=== PATIENT | female | born 1980 | race American Indian/Alaskan Native ===

== ENCOUNTER 2018-04-28 07:59 | Emergency (ER) | payer MEDICAID ==
[2018-04-28 08:29] VITALS: BMI 43.2
--- NOTE | 2018-04-28 08:33 | ED PDOC ---
Arrival/HPI - General Time Seen by Provider: 04/28/18 08:25 Historian: Patient - History of Present Illness Narrative History of Present Illness (Text): you were treated in the ED today for hx of having low blood levels and have had iron transfusions in the past and being sent for blood transfusion as last level 6.6 and otherwise without any nausea/vomiting/headache/dizziness/ difficulty breathing/chest pain/abdomen pain/numbness/tingling/loss of limb function/pain with urination/blood per rectum or vaginal bleeding. Symptom Onset: Gradual Quality: Other (no pain) Activities at Onset: Rest Context: Sitting Past Medical History - Provider Review Nursing Documentation Reviewed: Yes - Travel History Have you recently traveled outside [place] w/in the past 3 mons?: No Family/Social History - Physician Review Nursing Documentation Reviewed: Yes Family/Social History: No Known Family HX Allergies/Home Meds Allergies/Adverse Reactions: Allergies loratadine [From Claritin] Allergy (Verified 04/28/18 08:32) tingling of lips cilantro Allergy (Uncoded 04/28/18 08:32) SWELLING coconut Allergy (Uncoded 04/28/18 08:32) SWELLING raw onion Allergy (Uncoded 04/28/18 08:32) SWELLING Home Medications: Home Meds Medication Instructions Recorded Confirmed No Known Home Med 04/28/18 04/28/18 Review of Systems - Review of Systems Constitutional: Normal Eyes: Normal ENT: Normal Respiratory: Normal Cardiovascular: Normal Gastrointestinal: Normal Genitourinary Female: Normal Musculoskeletal: Normal Skin: Normal Neurological: Normal Endocrine: Normal Hemo/Lymphatic: Normal Psychiatric: Normal Physical Exam Vital Signs Reviewed: Yes Vital Signs Temp Pulse Resp BP Pulse Ox 04/28/18 14:53 98.0 F 78 17 135/95 H 99 04/28/18 14:47 98.0 F 66 18 135/95 H 99 04/28/18 12:12 98.4 F 61 20 135/79 04/28/18 11:27 97.9 F 57 L 19 137/76 100 04/28/18 11:09 98.2 F 64 18 131/83 04/28/18 08:28 98.5 F 79 17 133/77 99 Temperature: Afebrile Blood Pressure: Hypertensive Pulse: Regular Respiratory Rate: Normal Appearance: Positive for: Well-Appearing, Non-Toxic, Comfortable Pain Distress: None Mental Status: Positive for: Alert and Oriented X 3 - Systems Exam Head: Present: Atraumatic, Normocephalic Pupils: Present: PERRL Extroacular Muscles: Present: EOMI Conjunctiva: Present: Other (pale) Ears: Present: Normal Mouth: Present: Moist Mucous Membranes Pharnyx: Present: Normal Nose (External): Present: Atraumatic Nose (Internal): Present: Normal Inspection Neck: Present: Normal Range of Motion Respiratory/Chest: Present: Clear to Auscultation, Good Air Exchange Cardiovascular: Present: Regular Rate and Rhythm Abdomen: No: Tenderness, Distention, Normal Bowel Sounds, Peritoneal Signs, Rebound, Guarding, McBurney's Point Tender, Rovsing's Sign Present, Hernias, Feeding Tubes, Ostomy Tubes, Mass/Organomegaly, Scars, Other Back: Present: Normal Inspection Upper Extremity: Present: Normal Inspection Lower Extremity: Present: Normal Inspection, CALF TENDERNESS, NORMAL PULSES Neurological: Present: GCS=15, CN II-XII Intact, Speech Normal, Motor Func Grossly Intact Skin: Present: Warm, Normal Color Psychiatric: Present: Alert, Oriented x 3, Normal Insight, Normal Concentration Medical Decision Making ED Course and Treatment: you were treated in the ED today for hx of having low blood levels and have had iron transfusions in the past and being sent for blood transfusion as last level 6.6 and otherwise without any nausea/vomiting/headache/dizziness/ difficulty breathing/chest pain/abdomen pain/numbness/tingling/loss of limb function/pain with urination/blood per rectum or vaginal bleeding. You were otherwise breathing easily, smiling and talking easily, good strength/sensation , alert/oriented, walking, clear lungs, no abdomen tenderness, skin pale eyelids , no fever temp 98.5, stable heart rate 79, stable breathing rate 17, excellent oxygen level 99% room air, elevated blood pressure 133/77 which we recommend repeat in 2-3 days primary care office to determine further treatment, you have blood tests no infection count 4, low blood level hemoglobin 6.5/platelets stable 433, stable chemistry, heart blood test negative less than 0.01, urine test no acute sign of infection, urine test negative, ECG normal sinus rhythm, transfusion planned, observation done in the ED with improvement. d/w Dr. Fisher hospitalist who stated since patient doesn't want to stay in the hospital as she has makenzie show to attend at 645pm today and thus hospitalist stated to give 1 unit of blood and reassess with plan for discharge after 1u and if patient decides to stay in the hospital can re-call and admit. patient cautioned for complications/. signed out to Dr. Betancur to fu prbc transfusion and disposition. 04/28/18 10:57 Reassessment Condition: Re-examined, Improved - Lab Interpretations Lab Results: 04/28/18 08:38 04/28/18 08:38 Lab Results 04/28/18 09:30: Blood Type Confirm A POSITIVE 04/28/18 08:50: Blood Type A POSITIVE, Antibody Screen Negative, Crossmatch See Detail, BBK History Checked No verified bt 04/28/18 08:38: Sodium 141, Potassium 3.8, Chloride 107, Carbon Dioxide 22, Anion Gap 16, BUN 9, Creatinine 0.5 L, Est GFR ( Amer) > 60, Est GFR (Non -Af Amer) > 60, Random Glucose 94, Calcium 9.2, Magnesium 1.8, Total Bilirubin 0.2, AST 24, ALT 16, Alkaline Phosphatase 42, Lactate Dehydrogenase 424, Total Creatine Kinase 38, Troponin I < 0.01, Total Protein 7.5, Albumin 4.1, Globulin 3.4, Albumin/Globulin Ratio 1.2 04/28/18 08:38: Urine Color Yellow, Urine Appearance Clear, Urine pH 6.0, Ur Specific [place] 1.020, Urine Protein Trace H, Urine Glucose (UA) Negative, Urine Ketones Negative, Urine Blood Trace-intact H, Urine Nitrate Negative, Urine Bilirubin Negative, Urine Urobilinogen 0.2, Ur Leukocyte Esterase Negative , Urine RBC 1 - 3, Urine WBC 0 - 2, Ur Epithelial Cells 4 - 5, Urine Bacteria Mod 04/28/18 08:38: PT 12.0, INR 1.04, APTT 38.0 H 04/28/18 08:38: WBC 4.0 L, RBC 4.36, Hgb 6.5 L*, Hct 25.3 L, MCV 58.0 L, MCH 14.9 L, MCHC 25.7 L, RDW 21.1 H, Plt Count 433, Gran % 57.5, Lymph % (Auto) 31.9 , [place] % (Auto) 8.7 H, Eos % (Auto) 1.7, Baso % (Auto) 0.2, Gran # 2.30, Lymph # (Auto) 1.3, [place] # (Auto) 0.4, Eos # (Auto) 0.1, Baso # (Auto) 0.01, Neutrophils % (Manual) 70, Lymphocytes % (Manual) 26, Monocytes % (Manual) 3, Basophils % (Manual) 1, Platelet Evaluation Normal, Large Platelets Present, Giant Platelets Present, Hypochromasia 3+, Poikilocytosis (manual Slight, Anisocytosis (manual) 1+, Microcytosis (manual) 3+, Tear Drop Cells Slight, Ovalocytes Slight I have reviewed the lab results: Yes - EKG Interpretation Interpreted by ED Physician: Yes (NSR) Type: 12 lead EKG Disposition/Present on Arrival - Present on Arrival Any Indicators Present on Arrival: No - Disposition Have Diagnosis and Disposition been Completed?: Yes Diagnosis: Anemia Disposition: HOME/ ROUTINE Disposition Time: 07:34 Patient Plan: Discharge Condition: IMPROVED Additional Instructions: MIKA PERDUE, thank you for letting us take care of you today. Your provider was Fco eBtancur DO and you were treated for Anemia. The emergency medical care you received today was directed at your acute symptoms. If you were prescribed any medication, please fill it and take as directed. It may take several days for your symptoms to resolve. Return to the Emergency Department if your symptoms worsen, do not improve, or if you have any other problems. Please contact your doctor or call one of the physicians/clinics you have been referred to that are listed on the Patient Visit Information form that is included in your discharge packet. Bring any paperwork you were given at discharge with you along with any medications you are taking to your follow up visit. Our treatment cannot replace ongoing medical care by a primary care provider outside of the emergency department. Thank you for allowing the [facility] team to be part of your care today. If you had an X-Ray or CT scan: A Radiologist will review the ED reading if any change in treatment is needed we will contact you. If you had a blood, urine, or wound culture: It will take several days for the results, if any change in treatment is needed we will contact you. If you had an STI test: It will take 48 hours for the results. Please call after 1 week if you have not heard back. Referrals: Kellee Jurado MD [Primary Care Provider] - Follow up with primary Forms: WORK NOTE
[2018-04-28 09:08] LABS: BASO # 0.01 K/mm3 (0.0-2.0); BASO % 0.2 % (0.0-3.0); EOS # 0.1 (0.0-0.7); EOS % 1.7 % (1.5-5.0); GRAN % 57.5 % (50.0-68.0); LYMPH # 1.3 (1.2-3.4); LYMPH % 31.9 % (22.0-35.0); MEAN CORPUSCULAR HEMOGLOBIN 14.9 pg (25.0-35.0); MEAN CORPUSCULAR HGB CONC 25.7 g/dl (31.0-37.0); MONO # 0.4 (0.1-0.6); MONO % 8.7 % (1.0-6.0); PLATELET COUNT 433 10^3/uL (120.0-450.0); RBC 4.36 10^6/uL (3.5-6.1); RED CELL DISTRIBUTION WIDTH 21.1 % (11.5-14.5); URINE BILIRUBIN NEGATIVE (NEGATIVE); URINE BLOOD TRACE-INTACT (NEGATIVE); URINE GLUCOSE (UA) NEGATIVE (NEGATIVE); URINE LEUKOCYTE ESTERASE NEGATIVE Leu/uL (NEGATIVE); URINE PROTEIN TRACE mg/dL (<30 mg/dL); URINE UROBILINOGEN 0.2 E.U./dL (<1 E.U./dL)
[2018-04-28 09:12] LABS: HEMOGLOBIN 6.5 g/dL (12.0-16.0); URINE APPEARANCE CLEAR (CLEAR); URINE COLOR YELLOW (YELLOW)
[2018-04-28 09:18] LABS: ALB/GLOB RATIO 1.2 (1.1-1.8); ALBUMIN 4.1 g/dL (3.0-4.8); ALT/SGPT 16 U/L (7-56); AST/SGOT 24 U/L (14-36); BLOOD UREA NITROGEN 9 mg/dL (7-21); CALCIUM 9.2 mg/dL (8.4-10.5); GFR AFRICAN-AMERICAN > 60; GFR NON-AFRICAN AMERICAN > 60; URINE BACTERIA MOD (NEG); URINE WBC 0 - 2 /hpf (0-6)
[2018-04-28 09:19] LABS: INR 1.04 (0.93-1.08)
[2018-04-28 09:29] LABS: TROPONIN I < 0.01 ng/mL
[2018-04-28 09:34] LABS: ANISOCYTOSIS 1+; BASOPHIL 1 % (0.0-1.0); HYPOCHROMIA 3+; LYMPHOCYTE 26 % (22.0-35.0); MICROCYTOSIS 3+; MONOCYTE 3 % (1.0-6.0); NEUTROPHIL 70 % (50.0-70.0); POIKILOCYTOSIS SLIGHT
[2018-04-28 09:35] LABS: GIANT PLATELETS PRESENT; LARGE PLATELETS PRESENT; OVALOCYTES SLIGHT; PLATELET ESTIMATE NORMAL (NORMAL); TEAR DROP CELLS SLIGHT
--- NOTE | 2018-04-28 12:47 | ED PDOC ---
Physical Exam Vital Signs Reviewed: Yes Vital Signs Temp Pulse Resp BP Pulse Ox 04/28/18 12:12 98.4 F 61 20 135/79 04/28/18 11:27 97.9 F 57 L 19 137/76 100 04/28/18 11:09 98.2 F 64 18 131/83 04/28/18 08:28 98.5 F 79 17 133/77 99 Temperature: Afebrile Blood Pressure: Normal Pulse: Regular Respiratory Rate: Normal Appearance: Positive for: Well-Appearing, Non-Toxic, Comfortable Pain Distress: None Mental Status: Positive for: Alert and Oriented X 3 Medical Decision Making ED Course and Treatment: 04/28/18 12:36 Patient signed out to me by Dr. Giles at this time. Patient has a history of anemia and has received iron infusions in the past by Dr. Regalado. She has had a work up for anemia from him. Currently she's receiving her blood transfusion. Pending call back from Dr. Regalado. 04/28/18 14:12 Case was discussed with Dr. Regalado, patient's hem/onc physician. He has seen her in the clinic before, last in june and has been giving iron transfusions. She has metamorrhagia. Currently she is still asymptomatic. She was able to walk around with no symptoms. Dr. Regalado said we can discharge her home after 1 unit of PRBC and she can f/u in one week. I explained to her in detail that she needs to make sure she follows up with him in one week. She is happy with this decision. She will also return to the ED if she has any symptoms such as lightheadedness, weakness or any other concern. - Lab Interpretations Lab Results: 04/28/18 08:38 04/28/18 08:38 Lab Results 04/28/18 09:30: Blood Type Confirm A POSITIVE 04/28/18 08:50: Blood Type A POSITIVE, Antibody Screen Negative, Crossmatch See Detail, BBK History Checked No verified bt 04/28/18 08:38: Sodium 141, Potassium 3.8, Chloride 107, Carbon Dioxide 22, Anion Gap 16, BUN 9, Creatinine 0.5 L, Est GFR ( Amer) > 60, Est GFR (Non -Af Amer) > 60, Random Glucose 94, Calcium 9.2, Magnesium 1.8, Total Bilirubin 0.2, AST 24, ALT 16, Alkaline Phosphatase 42, Lactate Dehydrogenase 424, Total Creatine Kinase 38, Troponin I < 0.01, Total Protein 7.5, Albumin 4.1, Globulin 3.4, Albumin/Globulin Ratio 1.2 04/28/18 08:38: Urine Color Yellow, Urine Appearance Clear, Urine pH 6.0, Ur Specific [place] 1.020, Urine Protein Trace H, Urine Glucose (UA) Negative, Urine Ketones Negative, Urine Blood Trace-intact H, Urine Nitrate Negative, Urine Bilirubin Negative, Urine Urobilinogen 0.2, Ur Leukocyte Esterase Negative , Urine RBC 1 - 3, Urine WBC 0 - 2, Ur Epithelial Cells 4 - 5, Urine Bacteria Mod 04/28/18 08:38: PT 12.0, INR 1.04, APTT 38.0 H 04/28/18 08:38: WBC 4.0 L, RBC 4.36, Hgb 6.5 L*, Hct 25.3 L, MCV 58.0 L, MCH 14.9 L, MCHC 25.7 L, RDW 21.1 H, Plt Count 433, Gran % 57.5, Lymph % (Auto) 31.9 , [place] % (Auto) 8.7 H, Eos % (Auto) 1.7, Baso % (Auto) 0.2, Gran # 2.30, Lymph # (Auto) 1.3, [place] # (Auto) 0.4, Eos # (Auto) 0.1, Baso # (Auto) 0.01, Neutrophils % (Manual) 70, Lymphocytes % (Manual) 26, Monocytes % (Manual) 3, Basophils % (Manual) 1, Platelet Evaluation Normal, Large Platelets Present, Giant Platelets Present, Hypochromasia 3+, Poikilocytosis (manual Slight, Anisocytosis (manual) 1+, Microcytosis (manual) 3+, Tear Drop Cells Slight, Ovalocytes Slight - Scribe Statement The provider has reviewed the documentation as recorded by the Renetta Rivera Provider Scribe Attestation: All medical record entries made by the Scribe were at my direction and personally dictated by me. I have reviewed the chart and agree that the record accurately reflects my personal performance of the history, physical exam, medical decision making, and the department course for this patient. I have also personally directed, reviewed, and agree with the discharge instructions and disposition. Disposition/Present on Arrival - Present on Arrival Any Indicators Present on Arrival: No History of DVT/PE: No History of Uncontrolled Diabetes: No Urinary Catheter: No History of Decub. Ulcer: No History Surgical Site Infection Following: None - Disposition Have Diagnosis and Disposition been Completed?: Yes Diagnosis: Anemia Disposition: HOME/ ROUTINE Disposition Time: 14:15 Patient Plan: Discharge Patient Problems: Current Active Problems Problem Status Onset Anemia Acute Condition: IMPROVED Additional Instructions: MIKA PERDUE, thank you for letting us take care of you today. Your provider was Fco Betancur DO and you were treated for Anemia. The emergency medical care you received today was directed at your acute symptoms. If you were prescribed any medication, please fill it and take as directed. It may take several days for your symptoms to resolve. Return to the Emergency Department if your symptoms worsen, do not improve, or if you have any other problems. Please contact your doctor or call one of the physicians/clinics you have been referred to that are listed on the Patient Visit Information form that is included in your discharge packet. Bring any paperwork you were given at discharge with you along with any medications you are taking to your follow up visit. Our treatment cannot replace ongoing medical care by a primary care provider outside of the emergency department. Thank you for allowing the [facility] team to be part of your care today. If you had an X-Ray or CT scan: A Radiologist will review the ED reading if any change in treatment is needed we will contact you. If you had a blood, urine, or wound culture: It will take several days for the results, if any change in treatment is needed we will contact you. If you had an STI test: It will take 48 hours for the results. Please call after 1 week if you have not heard back. Referrals: Kellee Jurado MD [Primary Care Provider] - Follow up with primary Forms: WORK NOTE
[2018-04-28 14:55] VITALS: BP 135/95; PULSE 78; RESP 17; TEMP 98; O2SAT 99
--- NOTE | 2018-04-28 22:12 | CARD ---
APPROVED REPORT EKG Measurement Heart [id number] <Conclusion> Normal sinus rhythm Minimal voltage criteria for LVH, may be normal variant Borderline ECG
== END 2018-04-28 14:47 | disposition home or self-care (01) ==
LOC: ED 07:59
DX: D64.9 Anemia, unspecified (principal)
CPT/HCPCS: 36430; 80053; 81001; 82550; 83615; 83735; 84484; 85025; 85610; 85730; 86850; 86900; 86920; 87086; 93005; 99282; P9016